=== PATIENT | male | born 1935 | race Caucasian/White ===

== ENCOUNTER 2018-05-13 11:24 | Emergency (ER) | payer OTHER ==
[2018-05-13 12:27] LABS: Protime INR 1.03
[2018-05-13 12:30] LABS: Potassium 3.3 mEq/L (3.6-5.0)
[2018-05-13 12:36] LABS: Albumin 3.8 g/dL (3.2-5.5); Bilirubin Direct 0.2 mg/dL (0-0.2); Bilirubin Total 1.1 mg/dL (0.3-1.2); Protein, Total 7.4 g/dL (6.0-8.3)
[2018-05-13 12:44] LABS: Absolute Lymphocytes (CBC) 0.9 K/uL (0.7-4.9); Absolute Monocytes 0.7 K/uL (0.1-1.3); Absolute Neutrophil 7.6 K/uL (1.8-8.0); Basophils % 0.6 % (0-1.3); Eosinophils % 1.6 % (0-4.4); Hematocrit 42.6 % (39.6-49.0); Lymphocytes % 9.1 % (15.3-44.8); MCV 85.8 fL (80-100); MPV 8.5 fL (7.6-11.3); Monocytes % 7.5 % (3.3-12.3); RBC Red Blood Cell Count 4.96 M/uL (4.33-5.43)
--- NOTE | 2018-05-13 15:54 | RAD REPORT ---
EXAM DESCRIPTION: CTAbdomen Pelvis W Contrast - 05/13/2018 3:37 pm CLINICAL HISTORY: Abdominal pain. hematuria;Abd pain COMPARISON: Head C Spine Cap Wo Con dated 01/11/2018 TECHNIQUE: Biphasic CT imaging of the abdomen and pelvis was performed with 100 ml non-ionic IV cont rast. All CT scans are performed using dose optimization technique as appropriate and may include automated exposure control or mA/KV adjustment according to patient size. FINDINGS: Emphysematous changes are present in the lung bases. The liver demonstrates a normal size and appearance. No intrahepatic biliary dilatation. Multiple gal lstones are present in the gallbladder. The spleen, pancreas and adrenal glands are normal. Hydronephrosis is present bilaterally, moderate on the right and moderate to severe on the left. Both ureters are also dilated. The urinary bladder is significantly distended and demonstrates wall thick ening and irregularity. Overall, similar findings were present on the comparative study. No bowel obstruction, free air, free fluid or abscess. The appendix is not identified as a discrete structure, however, no secondary findings of appendicitis are identified. Aortic atherosclerosis is present. No evidence of significant lymphadenopathy. No suspicious bony findings. Increased density is seen in the penis of unclear etiology, possibly wit hin the urethra. IMPRESSION: Chronic bladder outlet obstruction pattern is suspected with moderate right and moderate to severe left hydronephrosis with significant bladder distention. Irregular appearance to the bladd er with thickening present may indicate findings secondary to cystitis cystica, although neoplastic p rocess cannot be ruled out. Increased density within the region of the penile urethra may be related to blood product. Direct exa mination is suggested. Cholelithiasis.
[2018-05-13 17:45] LABS: Urine Amorphous Sediment 1+ /HPF (NONE SEEN); Urine Bacteria 20-50 /HPF (NONE SEEN); Urine Culture Reflex Order NOT NEEDED; Urine Mucus 1+ /HPF (NONE SEEN)
[2018-05-13 17:48] LABS: Urine Blood 3+ (NEG); Urine Glucose NEGATIVE (NEG); Urine Protein 2+ (NEG); Urine Specific Gravity 1.015 (1.005-1.030); Urine pH 6.5 (5.0-7.0)
--- NOTE | 2018-05-13 18:03 | ER ---
Nurse's Notes [facility] Name: Dudley Carpenter Age: 82 yrs Sex: Male : 1935 Arrival Date: 05/13/2018 Time: 11:29 Bed 6 Private MD: Diagnosis: Urinary retention, hematuria, chronic hydronephrosis Presentation: 05/13 11:31 Presenting complaint: EMS states: Yesterday homehealth nurse noticed ivette blood in his sg leg bag from saini, removed existing saini to insert a new one, this morning, ivette blood noted again with blood around saini, and on sheets of his bed. saini removed and unable to place a new saini. Transition of care: patient was not received from another setting of care. Onset of symptoms was May 12, 2018. Risk Assessment: Do you want to hurt yourself or someone else? Patient reports no desire to harm self or others. Initial Sepsis Screen: Does the patient meet any 2 criteria? No. Patient's initial sepsis screen is negative. Does the patient have a suspected source of infection? No. Patient's initial sepsis screen is negative. Care prior to arrival: None. 11:31 Method Of Arrival: EMS: [facility] sg 11:31 Acuity: RODERICK 3 sg Historical: - Allergies: : No Known Allergies; sg - Home Meds: :31 aspirin 81 mg Oral chew 1 tab once daily for has not taken in months [Active]; blood sg pressure medication unknown [Active]; Lipitor Oral [Active]; pt does not take his medications, he doesnt think he needs to [Active]; - PMHx: 11:31 Dementia; Emphysema; Hyperlipidemia; Hypertension; Myocardial infarction; sg - PSHx: 11:31 3 heart stents; sg - Immunization history:: Adult Immunizations up to date. - Social history:: Smoking status: Patient/guardian denies using tobacco. - Ebola Screening: : Patient negative for fever greater than or equal to 101.5 degrees Fahrenheit, and additional compatible Ebola Virus Disease symptoms Patient denies exposure to infectious person Patient denies travel to an Ebola-affected area in the 21 days before illness onset No symptoms or risks identified at this time. Screenin:00 Abuse screen: Denies threats or abuse. Denies injuries from another. Nutritional sg screening: No deficits noted. Tuberculosis screening: No symptoms or risk factors identified. Never had TB. Fall Risk None identified. Assessment: 11:30 General: Appears in no apparent distress. comfortable, well groomed, well developed, sg well nourished, Behavior is calm, cooperative, appropriate for age. Pain: Complains of pain in groin Pain does not radiate. Quality of pain is described as aching. Neuro: No deficits noted. Cardiovascular: Heart tones S1 S2 present Capillary refill is brisk in bilateral fingers Patient's skin is warm and dry. Chest pain is denied. Respiratory: Airway is patent Respiratory effort is even, unlabored, Respiratory pattern is regular, symmetrical, Breath sounds are clear bilaterally. GI: No signs and/or symptoms were reported involving the gastrointestinal system. : Reports bloody urine. EENT: No signs and/or symptoms were reported regarding the EENT system. Derm: Skin is pink, warm \T\ dry. Musculoskeletal: No signs and/or symptoms reported regarding the musculoskeletal system. 16:00 Reassessment: Patient appears in no apparent distress at this time. Patient and/or sg family updated on plan of care and expected duration. Pain level reassessed. Patient is alert, oriented x 3, equal unlabored respirations, skin warm/dry/pink. 17:00 Reassessment: Patient appears in no apparent distress at this time. Patient and/or sg family updated on plan of care and expected duration. Pain level reassessed. Patient is alert, oriented x 3, equal unlabored respirations, skin warm/dry/pink. : Urine is ivette blood, Genitalia appear normal Swelling noted at urinary meatus. 18:50 Reassessment: Patient appears in no apparent distress at this time. Patient and/or sg family updated on plan of care and expected duration. Pain level reassessed. Patient is alert, oriented x 3, equal unlabored respirations, skin warm/dry/pink. urine in saini appears blood tinged at this time, pt daughter at bedside for pt d/c instructions. pt daughter reports home health nurse and hospice nurse available to assist pt d/c to home Patient states feeling better. Vital Signs: 11:34 BP 176 / 103; Pulse 69; Resp 17 S; Temp 97.8; Pulse Ox 98% on R/A; Pain 6/10; sg 18:00 BP 136 / 80; Pulse 72; Resp 17; Temp 97.9; Pulse Ox 100% on R/A; Pain 4/10; sg ED Course: 11:29 Patient arrived in ED. sv 11:30 Brandon Hagan MD is Attending Physician. kdr 11:31 Arm band placed on. sg 11:34 Triage completed. sg 11:36 Mustapha Kaiser, RN is Primary Nurse. sg 11:45 Patient has correct armband on for positive identification. Bed in low position. Call sg light in reach. Side rails up X2. Pulse ox on. NIBP on. Warm blanket given. Head of bed elevated. 11:54 Initial lab(s) drawn, by me, sent to lab. Inserted saline lock: 20 gauge in right em1 forearm, using aseptic technique. Blood collected. 15:29 CT completed. Patient tolerated procedure well. Note: patient was eating when tech went mw3 to get patient, per er dr go ahead and scan patient. Patient moved to CT via stretcher. Patient moved back from CT. 15:37 CT Abd/Pelvis - W/Contrast In Process Unspecified. EDMS 16:45 Urine collected: Saini catheter specimen. sg 17:08 Saini cath inserted, using sterile technique, 18 Fr., by ga, balloon inflated, to sg gravity drainage, returned bloody urine. Patient tolerated well. 18:04 Mao Torres MD is Referral Physician. kdr 18:50 No provider procedures requiring assistance completed. IV discontinued, intact, sg bleeding controlled, No redness/swelling at site. Pressure dressing applied. Administered Medications: No medications were administered Outcome: 18:03 Discharge ordered by . kdr 18:50 Discharged to home ambulatory, with family. sg 18:50 Condition: good 18:50 Discharge instructions given to patient, Instructed on discharge instructions, follow up and referral plans. medication usage, safety practices, Demonstrated understanding of instructions, follow-up care, medications, Prescriptions given X 1. 18:55 Patient left the ED. sg Addendum: 05/16/2018 07:54 Addendum: Culture Results: Positive urine culture. No further action required. Bacteria i w sensitive to prescribed antibiotic. Signatures: Dispatcher [employer] EDMS Bethany Santos RN RN Mustapha Kaiser RN RN Brandon Hagan MD MD kdr Williams, Irene, RN RN iw Martinez, Eric 1 Yasmeen Jc mw3
--- NOTE | 2018-05-13 18:03 | EDPHYS ---
Physician Documentation [facility] Name: Dudley Carpenter Age: 82 yrs Sex: Male : 1935 Arrival Date: 05/13/2018 Time: 11:29 Bed 6 Private MD: ED Physician Brandon Hagan Historical: - Allergies: 05/13 11:31 No Known Allergies; sg - Home Meds: 11:31 aspirin 81 mg Oral chew 1 tab once daily for has not taken in months [Active]; blood sg pressure medication unknown [Active]; Lipitor Oral [Active]; pt does not take his medications, he doesnt think he needs to [Active]; - PMHx: 11:31 Dementia; Emphysema; Hyperlipidemia; Hypertension; Myocardial infarction; sg - PSHx: 11:31 3 heart stents; sg - Immunization history:: Adult Immunizations up to date. - Social history:: Smoking status: Patient/guardian denies using tobacco. - Ebola Screening: : Patient negative for fever greater than or equal to 101.5 degrees Fahrenheit, and additional compatible Ebola Virus Disease symptoms Patient denies exposure to infectious person Patient denies travel to an Ebola-affected area in the 21 days before illness onset No symptoms or risks identified at this time. Vital Signs: 11:34 BP 176 / 103; Pulse 69; Resp 17 S; Temp 97.8; Pulse Ox 98% on R/A; Pain 6/10; sg 18:00 BP 136 / 80; Pulse 72; Resp 17; Temp 97.9; Pulse Ox 100% on R/A; Pain 4/10; sg MDM: 18:03 Patient medically screened. [facility] 05/13 11:31 Order name: Basic Metabolic Panel; Complete Time: 13:06 [facility] 05/13 11:31 Order name: CBC with Diff; Complete Time: 13:06 [facility] 05/13 11:31 Order name: Creatinine for Radiology; Complete Time: 13:06 [facility] 05/13 11:31 Order name: Hepatic Function; Complete Time: 13:06 [facility] 05/13 11:31 Order name: Urine Microscopic Only [facility] 05/13 11:31 Order name: PT-INR; Complete Time: 13:06 [facility] 05/13 11:31 Order name: IV Saline Lock; Complete Time: 11:54 [facility] 05/13 11:31 Order name: Labs collected and sent; Complete Time: 11:54 [facility] 05/13 11:31 Order name: Urine Dipstick-Ancillary (obtain specimen); Complete Time: 17:07 [facility] 05/13 11:31 Order name: Urine Culture [facility] 05/13 14:05 Order name: Diet Heart Healthy; Complete Time: 14:06 05/13 15:00 Order name: CT Abd/Pelvis - W/Contrast; Complete Time: 15:59 [facility] 05/13 17:31 Order name: Urine Dipstick--Ancillary (enter results) ss Administered Medications: No medications were administered Disposition: 05/13/18 18:03 Discharged to Home. Impression: Urinary retention, hematuria, chronic hydronephrosis. - Condition is Stable. - Prescriptions for Cipro 500 mg Oral Tablet - take 1 tablet by ORAL route every 12 hours for 7 days; 14 tablet. - Medication Reconciliation Form, Thank You Letter form. - Follow up: Private Physician; When: 2 - 3 days; Reason: If symptoms return, Further diagnostic work-up, Recheck today's complaints, Continuance of care, Re-evaluation by your physician. Follow up: Mao Torres MD; When: 1 week; Reason: If symptoms return, Further diagnostic work-up, Recheck today's complaints, Continuance of care, Re-evaluation by your physician. - Problem is new. - Symptoms have improved. Addendum: 05/23/2018 23:58 Addendum: CC: Blood in urine/saiin bag HPI: Home Health noted that the patient had k dr blood in his saini bag. Home Health attempted to change and replace the saini but were unable to get the new saini back in . Addendum: ROS: Const: No fever, chills or weight loss Eyes: no visual changes or c/o, Neck: no pain or injury, CV: no CP or palpitations, Resp: no SOB, cough or congestion, Abd: no n/v/d or pain, Back: no pain or injury, : the patient has had blood in his urine MS/Ext: no pain, injury, swelling, tingling, Skin: no lacerations, pain, injury, skin turgor good, Neuro: CN grossly intact and no other deficits, Psych: Appropriate for age, Allergy/Immunology: no rashes or other s/s, Endo: no evidence of polyuria, polydipsia, temperature control or other s/s . 05/24/2018 00:08 Addendum: Procedure: After several attempts and several different foleys, the nursing k dr staff was able to successfully place the saini and drain the badder. The patient had immediate urine return (hematuria). He tolerated well. MDM (Discharge) All VS and nursing notes reviewed. The patient was counseled on the results and need for follow-up. The patient was discharged in stable condition. They were happy with the care they received and the plan for d/c and follow-up. . Signatures: Dispatcher [employer] EDMS Mustapha Kaiser RN RN sg Brandon Hagan MD MD kdr Corrections: (The following items were deleted from the chart) 05/13 18:04 18:03 05/13/2018 18:03 Discharged to Home. Impression: Urinary retention, hematuria, kdr chronic hydronephrosis. Condition is Stable. Forms are Medication Reconciliation Form, Thank You Letter, Antibiotic Education, Prescription Opioid Use. Follow up: Private Physician; When: 2 - 3 days; Reason: If symptoms return, Further diagnostic work-up, Recheck today's complaints, Continuance of care, Re-evaluation by your physician. Problem is new. Symptoms have improved. kdr 18:55 18:04 05/13/2018 18:03 Discharged to Home. Impression: Urinary retention, hematuria, sg chronic hydronephrosis. Condition is Stable. Prescriptions for Cipro 500 mg Oral Tablet - take 1 tablet by ORAL route every 12 hours for 7 days; 14 tablet. and Forms are Medication Reconciliation Form, Thank You Letter. Follow up: Private Physician; When: 2 - 3 days; Reason: If symptoms return, Further diagnostic work-up, Recheck today's complaints, Continuance of care, Re-evaluation by your physician. Follow up: Mao Torres; When: 1 week; Reason: If symptoms return, Further diagnostic work-up, Recheck today's complaints, Continuance of care, Re-evaluation by your physician. Problem is new. Symptoms have improved. kdr
[2018-05-13 19:22] VITALS: BP 176/103; TEMP 97.8; O2SAT 98
== END 2018-05-13 18:55 | disposition home or self-care (01) ==
LOC: ER 11:24
DX: R33.9 Retention of urine, unspecified (principal); N13.39 Other hydronephrosis; I10 Essential (primary) hypertension; I25.2 Old myocardial infarction; E78.5 Hyperlipidemia, unspecified; F03.90 Unspecified dementia, unspecified severity, without behavioral disturbance, psychotic disturbance, mood disturbance, and anxiety; Z79.82 Long term (current) use of aspirin; Z95.818 Presence of other cardiac implants and grafts
CPT/HCPCS: 36415; 51702; 74177; 80048; 80076; 85025; 85610; 87077; 87086; 87088; 87186; 99285; Q9967; 81003; 81015

== ENCOUNTER 2018-06-08 03:55 | Emergency (ER) | payer OTHER ==
[2018-06-08] MEDS ORDERED: MORPHINE 4 MG/ML SYR ONE ×2 (05:20→07:17)
--- NOTE | 2018-06-08 06:32 | EDPHYS ---
Physician Documentation [facility] Name: Dudley Carpenter Age: 82 yrs Sex: Male : 1935 Arrival Date: 06/08/2018 Time: 03:55 Bed 3 Private MD: Lukasz Coxama ED Physician Joel James HPI: 06/08 06:53 This 82 yrs old Male presents to ER via Wheelchair with complaints of ps1 Breathing Difficulty. 06:53 Patient is on hospice. DNR. respiratory distress, brought in by family member. . ps1 Historical: - Allergies: 04:22 No Known Allergies; ak1 - Home Meds: 04:22 aspirin 81 mg Oral chew 1 tab once daily for has not taken in months [Active]; blood ak1 pressure medication unknown [Active]; Lipitor Oral [Active]; pt does not take his medications, he doesnt think he needs to [Active]; - PMHx: 04:22 Dementia; Emphysema; Hyperlipidemia; Hypertension; Myocardial infarction; ak1 - PSHx: 04:22 3 heart stents; ak1 - Immunization history:: Adult Immunizations unknown. - Social history:: Smoking status: unknown. - Ebola Screening: : No symptoms or risks identified at this time. ROS: 06:53 Constitutional: Negative for fever, chills, and weight loss. ps1 06:53 Constitutional: 06:53 Unable to obtain ROS due to altered mental status, obtunded state. Exam: 06:53 Head/Face: Normocephalic, atraumatic. Abdomen/GI: Soft, non-tender, with normal bowel ps1 sounds. No distension or tympany. No guarding or rebound. No evidence of tenderness throughout. 06:53 Constitutional: The patient appears comatose. 06:53 Cardiovascular: Rate: tachycardic. 06:53 Respiratory: severe repiratory distress is noted, Respirations: labored breathing, Breath sounds: rales. 06:53 Neuro: Orientation: unable to test, the patient is comatose. Vital Signs: 04:22 BP 210 / 94; Pulse 112; Resp 26; Pulse Ox 90% on Non-rebreather mask; Weight 52.16 kg ak1 (R); Height 5 ft. 7 in. (170.18 cm) (R); 06:45 Pulse 98; Resp 97; Pulse Ox 98% on Venturi mask; ea 07:14 BP 190 / 89; Pulse 94; Resp 10 S; Temp 97.1(TE); Pulse Ox 100% on 50% Venturi mask; aa5 08:11 BP 161 / 89; Pulse 85; Resp 12 S; Temp 97.0(TE); Pulse Ox 100% on 30% Venturi mask; aa5 04:22 Body Mass Index 18.01 (52.16 kg, 170.18 cm) ak1 MDM: 04:51 Patient medically screened. ps1 06:53 Data reviewed: vital signs, nurses notes. ED course: patient is hospice and DNR. Oxygen ps1 given to decrease WOB as well as morphine. [facility] and they will arrange transportation back to home. Family does not want to terminate hospice. . Administered Medications: 05:22 Drug: morphine 6 mg Route: IVP; Site: right antecubital; mg2 06:00 Follow up: Response: No adverse reaction; Marked relief of symptoms ea 07:20 Drug: morphine 6 mg Route: IVP; Site: right antecubital; ph 07:27 Follow up: Response: No adverse reaction ph Disposition: 06/08/18 06:31 Discharged to Home. Impression: Acute respiratory failure, Hospice patient. - Condition is Fair. - SBAR form, Medication Reconciliation Form, Thank You Letter, Antibiotic Education, Prescription Opioid Use form. - Problem is chronic. - Symptoms have worsened. Signatures: Isabell Thomas RN RN aa5 Tonya Solis RN RN ak1 Josephine Ibrahim RN RN Joel James MD MD ps1 Reinier Cintron RN RN [facility] [place] Yola Osorio RN ea Corrections: (The following items were deleted from the chart) 08:33 06:31 06/08/2018 06:31 Discharged to Home. Impression: Acute respiratory failure; aa5 Hospice patient. Condition is Fair. Forms are Medication Reconciliation Form, Thank You Letter, Antibiotic Education, Prescription Opioid Use. Problem is chronic. Symptoms have worsened. ps1
--- NOTE | 2018-06-08 06:32 | ER ---
Nurse's Notes [facility] Name: Dudley Carpenter Age: 82 yrs Sex: Male : 1935 Arrival Date: 06/08/2018 Time: 03:55 Bed 3 Private MD: Christin Cox Diagnosis: Acute respiratory failure;Hospice patient Presentation: 06/08 04:15 Presenting complaint: Child states: PT was fine during the day, took his night meds and ak1 became SOB. pt arrived to ER with retractions, drooling and respiratory distress. Transition of care: patient was not received from another setting of care. Onset of symptoms was June 08, 2018. Risk Assessment: Do you want to hurt yourself or someone else? Patient reports no desire to harm self or others. Initial Sepsis Screen: Does the patient have a suspected source of infection?. Care prior to arrival: None. pt uses home oxygen. 04:15 Method Of Arrival: Wheelchair ak1 04:15 Acuity: RODERICK 1 ak1 04:15 Note pt daughter stated pt is with [facility]. call placed to hospice nurse with [facility]. pt ak1 other daughter stated pt has DNR on file with [facility]. waiting [employer] back from [facility] hospice nurse. 06:37 Initial Sepsis Screen: Does the patient meet any 2 criteria? Yes. ea Triage Assessment: 04:22 General: Appears ill, malnourished, Behavior is unresponsive. Pain: Unable to use pain ak1 scale. Patient is unresponsive. EENT: Poor dentition noted. pt drooling upon arrival to ER. pt orally suctioned upon arrival to ER3.. Neuro: Level of Consciousness is unresponsive. Cardiovascular: pt diaphoretic. . Chest pain. Respiratory: Reports air hunger Airway is patent Respiratory effort is gasping, with retractions, Respiratory pattern is agonal Onset: The symptoms/episode began/occurred this morning, the patient has severe shortness of breath. GI: No deficits noted. : No deficits noted. Derm: Skin is diaphoretic. Musculoskeletal: No deficits noted. Historical: - Allergies: 04:22 No Known Allergies; ak1 - Home Meds: 04:22 aspirin 81 mg Oral chew 1 tab once daily for has not taken in months [Active]; blood ak1 pressure medication unknown [Active]; Lipitor Oral [Active]; pt does not take his medications, he doesnt think he needs to [Active]; - PMHx: 04:22 Dementia; Emphysema; Hyperlipidemia; Hypertension; Myocardial infarction; ak1 - PSHx: 04:22 3 heart stents; ak1 - Immunization history:: Adult Immunizations unknown. - Social history:: Smoking status: unknown. - Ebola Screening: : No symptoms or risks identified at this time. Screenin:38 Abuse screen: Denies threats or abuse. Nutritional screening: Pt currently on Hospice mg2 care. . Tuberculosis screening: No symptoms or risk factors identified. 05:00 Fall Risk ea Assessment: 04:20 Reassessment: María, the salesperson burial plots RN for [facility] returned call to ER. María stated she ak1 can not access the pt's file, the computer system is down. . 04:20 Reassessment: Dr. James asked to speak to [facility] Doctor salesperson [employer]. nuclear medical tech attempting to ak1 contact salesperson burial [employer] Doctor. . 04:22 General: Appears distressed, Behavior is drowsy. Pain: Unable to use pain scale. Neuro: mg2 Level of Consciousness is lethargic. Cardiovascular: Heart tones S1 S2 present. Respiratory: Respiratory effort is labored, with retractions, Respiratory pattern is symmetrical, Breath sounds are coarse bilaterally. Stridor noted. Respiratory: Airway is patent. GI: Abdomen is flat, non-distended. Derm: Skin is dry, Skin is mottled, Skin temperature is cool. 05:15 Reassessment: Physician at bedside updating family on plan of care. Family decided on mg2 comfort measures for patient at home. Family is attempting to get in contact with hospice company for assistance at home. Pt resting with eyes closed. Pt on O2 has been taken of monitor. Order obtained for morphine 6 mg IVP for comfort measures per physician, medication administered. Pt tolerated well. Family remains at bedside. 06:26 Reassessment: Pt remains on comfort measures. O 2 per Venturi mask, RR at 11 per min. ea Respirations even and unlabored. Chest expansions even and symmetrical. Family remains at bedside. 06:44 Reassessment: Awaiting for ambulance for transport home with [facility] home hospice care. ea 07:10 General: Appears uncomfortable. Pain: Unable to use pain scale. Does not appear to aa5 understand pain scale. Neuro: Level of Consciousness is Pt is non-verbal at this time, pt not following commands, pt with eyes closed. Pt attempting to sit up in bed at this time and pt opened eyes. Pt repositioned in bed and pt currently sitting up in bed with eyes closed, side rails x 2, bed locked in low position. Pt's daughter reports pt's baseline is verbal but confused. Pt's daughter states "he's been in Hospice since around january and he was still his normal yesterday". . Oriented to none Pupils are pinpoint. Cardiovascular: Heart tones S1 S2 present Edema is absent. Rhythm is sinus rhythm. Respiratory: Airway is patent Respiratory effort is with retractions, shallow, Respiratory pattern is regular, symmetrical, hypoventilation snoring Breath sounds are coarse bilaterally. GI: Abdomen is flat, non-distended, Bowel sounds present X 4 quads. Abd is soft X 4 quads. : No signs and/or symptoms were reported regarding the genitourinary system. EENT: No signs and/or symptoms were reported regarding the EENT system. Derm: Skin is dry, Skin is normal, Skin temperature is warm. 07:10 Reassessment: Pt's daughter states "[facility] said they would call us back after aa5 7:30 am because their office had to be open in order to readmit him". . 07:30 Reassessment: Pt appears comfortable, sitting up in bed with eyes closed. Respirations aa5 are even and shallow. . 07:50 Reassessment: Spoke to Jody from [facility] and she stated their transportation is not aa5 available until this afternoon and she is asking if we can set up transportation instead. Pt's family was notified and they agree for us to set up transportation with [facility] . 08:11 Reassessment: Pt sitting up with eyes closed, respirations are shallow and even. . aa5 08:20 Reassessment: EMS at bedside . aa5 Vital Signs: 04:22 BP 210 / 94; Pulse 112; Resp 26; Pulse Ox 90% on Non-rebreather mask; Weight 52.16 kg ak1 (R); Height 5 ft. 7 in. (170.18 cm) (R); 06:45 Pulse 98; Resp 97; Pulse Ox 98% on Venturi mask; ea 07:14 BP 190 / 89; Pulse 94; Resp 10 S; Temp 97.1(TE); Pulse Ox 100% on 50% Venturi mask; aa5 08:11 BP 161 / 89; Pulse 85; Resp 12 S; Temp 97.0(TE); Pulse Ox 100% on 30% Venturi mask; aa5 04:22 Body Mass Index 18.01 (52.16 kg, 170.18 cm) ak1 ED Course: 03:55 Patient arrived in ED. ds1 03:56 Christin Cox MD is Private Physician. ds1 04:00 Patient has correct armband on for positive identification. Bed in low position. Call mg2 light in reach. Side rails up X2. 04:05 Inserted saline lock: 18 gauge in right antecubital area, using aseptic technique. mg2 Blood collected. 04:06 Joel James MD is Attending Physician. ps1 04:17 Triage completed. ak1 04:22 Arm band placed on Patient placed in an exam room, on a stretcher, on oxygen, on ak1 patient monitor, on pulse oximetry, Patient notified of wait time. 04:41 Reinier Cintron RN is Primary Nurse. mg2 06:38 No provider procedures requiring assistance completed. ea 08:25 IV discontinued, intact, bleeding controlled, No redness/swelling at site. Pressure aa5 dressing applied. Administered Medications: 05:22 Drug: morphine 6 mg Route: IVP; Site: right antecubital; mg2 06:00 Follow up: Response: No adverse reaction; Marked relief of symptoms ea 07:20 Drug: morphine 6 mg Route: IVP; Site: right antecubital; ph 07:27 Follow up: Response: No adverse reaction ph Outcome: 06:31 Discharge ordered by . ps1 08:25 Discharged to Hospice via [facility] aa5 08:25 Condition: stable 08:25 Discharge instructions given to Pt's daughters Instructed on discharge instructions, Demonstrated understanding of instructions. 08:33 Patient left the ED. aa5 Signatures: Claudine Lozano ds1 Isabell Thomas RN RN aa5 Tonya Solis RN RN ak1 Josephine Ibrahim RN RN ph Yola Osorio RN RN ea Singer, Phillip, MD MD ps1 Reinier Cintron RN RN mg2 Corrections: (The following items were deleted from the chart) 04:38 04:37 Inserted saline lock: 18 gauge in right antecubital area, using aseptic mg2 technique. Blood collected. mg2
[2018-06-08 08:39] VITALS: O2SAT 100
[2018-06-08 08:40] VITALS: BP 161/89; TEMP 97
== END 2018-06-08 08:33 | disposition home or self-care (01) ==
LOC: ER 03:55
DX: J96.00 Acute respiratory failure, unspecified whether with hypoxia or hypercapnia (principal); I10 Essential (primary) hypertension; I25.2 Old myocardial infarction; E78.5 Hyperlipidemia, unspecified; J43.9 Emphysema, unspecified; Z79.82 Long term (current) use of aspirin; Z95.818 Presence of other cardiac implants and grafts
CPT/HCPCS: 96374; 99291; 99292